=== PATIENT | female | born 1970 | race Two or more races ===

== ENCOUNTER 2022-02-13 08:00 | Outpatient (CLI) | payer OTHER | END 2022-02-13 08:30 | disposition home or self-care (01) | LOC: PPH VACUNA 08:00 | PROVIDERS: ATTEND Emergency Medicine Pediatric Emergency Medicine | DX: Z23 Encounter for immunization (principal) ==

== ENCOUNTER 2023-01-15 10:10 | Outpatient (CLI) | payer OTHER | END 2023-01-15 10:16 | disposition home or self-care (01) | LOC: MAMO-SONO 10:10 | DX: N64.4 Mastodynia (principal) ==